=== PATIENT | female | born 1985 | race Caucasian/White ===

== ENCOUNTER 2016-07-04 02:38 | Inpatient (IN) | payer BC ==
[2016-07-04] VITALS (35 sets, daily range): BP systolic 100–137; BP diastolic 52–94; PULSE 58–102; TEMP 98–99
[~2016-07-04] VITALS: Ht 172.7 cm; Wt 86.4 kg
[~2016-07-04 02:38] MED LIST: PRENATAL1 TA7 PO
[2016-07-04 05:05] LABS: BASO % 0.4 % (0.0-2.0); EOS # 0.1 (0.0-0.7); EOS % 0.6 % (0-4.0); GRAN # 5.9 (1.4-6.5); HEMOGLOBIN 12.5 g/dl (12.5-16.0); LYMPH # 2.2 (1.2-3.4); LYMPH % 24.1 % (20.0-51.0); MEAN CELL VOLUME 86 fl (80.0-100.0); MEAN CORPUSCULAR HEMOGLOBIN 30 pg (27.0-31.0); MEAN CORPUSCULAR HGB CONC 36 g/dl (33.0-37.0); MEAN PLATELET VOLUME 12.8 fl (7.4-10.4); MONO # 0.8 (0.1-0.6); MONO % 8.6 % (1.7-9.3); PLATELET COUNT 184 K/mm3 (130-400); RED BLOOD COUNT 4.11 M/mm3 (4.10-5.30); REDCELL DISTRIBUTION WIDTH-CV 12.8 % (11.5-14.5)
[2016-07-04 05:09] LABS: HEMATOCRIT 35.2 % (37.0-47.0)
[2016-07-05 02:00] VITALS: BP 121/82; PULSE 89; TEMP 98
[2016-07-05 07:41] VITALS: BP 103/62; PULSE 67; TEMP 97.5
[2016-07-05] MEDS ORDERED: IBU800 M1 PO (14:42)
[2016-07-05 19:20] VITALS: BP 104/61; PULSE 68; TEMP 98.1
[2016-07-06 07:22] VITALS: BP 104/60; PULSE 82; TEMP 98.1
== END 2016-07-06 13:15 | disposition home or self-care (01) | DRG 775 ==
LOC: LDRO 02:38 → OB 03:44 → LDR 03:44 → OB 13:06
PROVIDERS: Obstetrics & Gynecology
PROC: 10D07Z6 Extraction of Products of Conception, Vacuum, Via Natural or Artificial Opening (ICD-10-PCS; principal; 2016-07-04)
PROC: 0KQM0ZZ Repair Perineum Muscle, Open Approach (ICD-10-PCS; 2016-07-04)
DX: O36.0130 Maternal care for anti-D [Rh] antibodies, third trimester, not applicable or unspecified (principal); O69.81X0 Labor and delivery complicated by cord around neck, without compression, not applicable or unspecified; O70.1 Second degree perineal laceration during delivery; O76 Abnormality in fetal heart rate and rhythm complicating labor and delivery; Z3A.38 38 weeks gestation of pregnancy; Z37.0 Single live birth
CPT/HCPCS: J2590; J7120

== ENCOUNTER 2018-07-11 22:43 | Outpatient (CLI) | payer BC ==
[~2018-07-11] VITALS: Ht 172.7 cm; Wt 87.3 kg
[~2018-07-11 22:43] MED LIST changes: +IBU800 M1 PO
[2018-07-11 23:00] VITALS: BP 127/81; PULSE 67; TEMP 97.8
--- NOTE | 2018-07-11 23:00 | NUR ---
2300 G3L1 39.1 WEEK GEST TO LR5 WITH C/O CONTRACTIONS AND LEFT SIDE PAIN. STATES HAS HAD A CHEST COLD AND BEEN COUGHING. ON 07/10/2018 SHE COUGHED HARD AND FELT A POP IN HER LEFT LOWER SIDE AND IT HAS BEEN HURTING CONSTANTLY SINCE WITH A NORMAL PAIN LEVEL OF 7 OUT OF 10. STATES AROUND 2200 TONIGHT SHE FELT LIKE SHE WAS STARTING TO HAVE CONTRACTIONS. EFM ON. CONTRACTION NOTED AND THEN ANOTHER NOT NOTED FOR ABOUT 20 MINUTES. SVE 2-3/75/-2. STATES TO PLAIN TYLENOL AROUND 2144 WITH NO PAIN RELIEF. ADM ASSESSMENT DONE.
[2018-07-11] MEDS ORDERED: SUDAFED30 MG PO (23:05)
[2018-07-11] MEDS ORDERED: TYLENOL 325MG325 MG (23:05)
[2018-07-11 23:06] VITALS: BP 127/81; PULSE 67; TEMP 97.8
--- NOTE | 2018-07-12 | NUR ---
0000 SVE WITH NO CHANGE. PAIN ON LEFT SIDE TOWARDS BACK BENEATH RIBS. 0010 DR MANRIQUEZ NOTFIED. ORDERS RECEIVED. 0020 LAB DRAWN AND UA OBTAINED. TYLENOL 1000 MG AND VISTARIL 50MG PO GIVEN.
--- NOTE | 2018-07-12 00:25 | NUR ---
0025 TYLENOL 1000 MG AND VISTARIL 50 MG PO GIVEN. SITTING UP IN BED WITH WARM BLANKET BEHIND LEFT SIDE FOR COMFORT. STILL RATES HER PAIN AT A 7 OUT OF 10.
[2018-07-12 00:54] LABS: COLLECTION METHOD CLEAN CATCH
[2018-07-12 00:58] LABS: BASO % 0.3 % (0.0-2.0); EOS # 0.1 (0.0-0.7); EOS % 0.5 % (0-4.0); GRAN # 6.1 (1.4-6.5); GRAN % 66.2 % (42.2-75.2); HEMOGLOBIN 12.4 g/dl (12.5-16.0); LYMPH # 2.3 (1.2-3.4); LYMPH % 25.1 % (20.0-51.0); MEAN CELL VOLUME 87 fl (80.0-100.0); MEAN CORPUSCULAR HEMOGLOBIN 29 pg (27.0-31.0); MEAN CORPUSCULAR HGB CONC 34 g/dl (33.0-37.0); MEAN PLATELET VOLUME 11.7 fl (7.4-10.4); MONO # 0.7 (0.1-0.6); MONO % 7.4 % (1.7-9.3); PLATELET COUNT 235 K/mm3 (130-400); RED BLOOD COUNT 4.25 M/mm3 (4.10-5.30); REDCELL DISTRIBUTION WIDTH-CV 13.6 % (11.5-14.5)
[2018-07-12 00:59] LABS: HEMATOCRIT 36.8 % (37.0-47.0)
[2018-07-12 00:59] LABS: MUCOUS Present /lpf; PH 5 (5-8); SQUAMOUS EPITHELIAL 0-2 /hpf; URINE APPEARANCE Clear; URINE BACTERIA None Seen /hpf; URINE BILIRUBIN Negative (NEGATIVE); URINE BLOOD Negative (NEGATIVE); URINE COLOR Yellow; URINE GLUCOSE Negative (NEGATIVE); URINE KETONE Negative (NEGATIVE); URINE LEUKOCYTE ESTERASE Negative (NEGATIVE); URINE NITRATE Negative (NEGATIVE); URINE PROTEIN(semi-quant) 1+ (NEGATIVE); URINE RBC 0-2 /hpf; URINE UROBILINOGEN Negative (NEGATIVE); URINE WBC 0-2 /hpf
[2018-07-12 01:08] LABS: ALBUMIN 3.7 gm/dL (3.5-5.0); BILIRUBIN,TOTAL 0.2 mg/dL (0.0-1.0); CALCIUM 9.5 mg/dL (8.4-10.2); CREATININE, serum 0.89 mg/dL (0.52-1.25); POTASSIUM 4.1 mmol/L (3.4-5.0); TOTAL PROTEIN 7.2 gm/dL (6.4-8.2)
[2018-07-12 01:10] VITALS: BP 117/77; PULSE 74
--- NOTE | 2018-07-12 01:30 | NUR ---
0130 DR MANRIQUEZ NOTIFIED OF NO RELIEF FROM TYLENOL AND VISTARIL. NEW ORDERS RECEIVED. 0140 IV LR STARTED IN LEFT HAND.
[2018-07-12 02:00] VITALS: BP 122/81; PULSE 75
--- NOTE | 2018-07-12 02:00 | NUR ---
0200 MORPHINE 2 MG IV GIVEN. STATES IF LAYS STILL PAIN IN LEFT BACK NEAR BRA LINE IS NOT TOO BAD BUT IF SHE MOVES OR BREATHS DEEP CAUSES SHOOTING PAINS.
--- NOTE | 2018-07-12 03:00 | NUR ---
0300 STATES MORPHINE HELPED SOME. RATES PAIN [address] MANRIQUEZ UPDATED AND ORDER RECEIVED TO DISMISS TO HOME AFTER IV FLUIDS INFUSED.
--- NOTE | 2018-07-12 03:15 | NUR ---
0315 IV DCD. DISMISSAL INSTRUCTIONS GIVEN. 0325 HOME PER AMB WITH
[2018-07-13] MEDS ORDERED: IBU800 M1 PO (10:27)
== END 2018-07-12 03:25 | disposition home or self-care (01) ==
LOC: LDRO 22:43 → LDR 22:52 → LDRO 07-12 03:25
PROVIDERS: Obstetrics & Gynecology
DX: O62.9 Abnormality of forces of labor, unspecified (principal); O26.893 Other specified pregnancy related conditions, third trimester; R10.9 Unspecified abdominal pain; Z3A.39 39 weeks gestation of pregnancy
CPT/HCPCS: OP; J2270; J7120

== ENCOUNTER 2018-07-12 09:13 | Inpatient (IN) | payer BC ==
[2018-07-12] VITALS (43 sets, daily range): BP systolic 86–134; BP diastolic 48–83; PULSE 54–96; TEMP 98.3–98.5
[~2018-07-12] VITALS: Ht 172.7 cm; Wt 87.3 kg
[~2018-07-12 09:13] MED LIST changes: +SUDAFED30 MG PO; +TYLENOL 325MG325 MG
--- NOTE | 2018-07-12 09:30 | NUR ---
Patient ambulatory onto unit for induction of labor after talking to regarding pain. at side. Oriented to room, plan of care discussed. Patient reports irregular contractions and good movement, denies vaginal bleeding or leaking of fluid. States pain has continued after evaluation last night. Denies need for Morphine at this time, aware of order from . EFMs on, VS taken. Assessment completed. Consents signed. IV started by Ángel RN, LR infusing per orders. Call light within reach.
--- NOTE | 2018-07-12 10:30 | NUR ---
Dr. Santiago on unit, reviews FHR strip. Orders to start Pitocin induction at this time. RN at bedside, reviews Pitocin administration. Patient denies questions. Pitocin started at 2 mU per protocol and order. Will monitor per protocol.
--- NOTE | 2018-07-12 11:25 | NUR ---
Patient requesting epidural. Dr. Santiago on unit, notified. Orders for epidural recieved. 1135- Gregory Castillo CRNA at bedside. Patient assisted to sit on edge of bed. 1145- Epidural test dose by Gregory Castillo CRNA. Patient tolerates well, no adverse reactions noted. See anesthesia record. 1150- Patient repositioned LL following epidural. Updated on plan of care and safety.
--- NOTE | 2018-07-12 12:00 | NUR ---
1155- Dr. Santiago at bedside. Discussing AROM with patient. Patient agrees and denies questions. 1200- SVE per provider -/-2. AROM by Dr. Santiago for moderate amount of clear fluid. Pericare given and patient updated on plan of care. Beginning to get comfortable with epidural. 1220- Report to Miguel Metz RN.
--- NOTE | 2018-07-12 12:30 | NUR ---
1217- Late deceleration noted post contraction. heart rate down to 100bpm with moderate variability and spontaneous return to baseline over 80 seconds. will continue to monitor
--- NOTE | 2018-07-12 13:30 | NUR ---
1318- heart rate down to 105bpm over 60 seconds wit moderate variability and spontaneous return to baseline. 1324- FHR down to 95 bpm over 150 seconds with spontaenous return to baseline and moderate variability. Nurse into room for monitoring of patient. Will continue to monitor paitent
--- NOTE | 2018-07-12 13:45 | NUR ---
1339- Fhr down to 100 bpm over 90 second with spontaneous return to baseline and moderate varibility, fluid bolus initiated. 1341- FHR down to 90 bpm over 90 seconds with spontaneous return to baseline. Nurse at patient bedside, patient adjusted postion, change from wedge righ to wedge left, then back to wedge right. Nurse remains bedside for monitor of FHR. Will continue to moniotr.
--- NOTE | 2018-07-12 14:00 | NUR ---
1339- FHR down to 90 bpm over 70 seconds with spontaneous return to baseline with moderate variability. SVE completed and noted 5/80/0, peanut ball in place and patient readjusted. nurse remains at bedside for monitoring of patient.
--- NOTE | 2018-07-12 14:15 | NUR ---
1400- FHR down to 90 bpm over 80 seconds with spontanoues return to baseline with moderate varibility. 1411- FHR down to 85 bpm over 80 seconds with moderate variability and spontaneous return to baseline, at patient bedside reviewing FHR strip and helping to adjust patient. Pitocin stopped at this time. SVE completed by , noted , patient tolerated well. 1414- FHR down to 90 bpm with spontaneous return to baseline and moderate varibiality . At this time patient set up into sitting positioin. Will continue to monitor.
--- NOTE | 2018-07-12 15:00 | NUR ---
Pitocin restarted per instruction of , Pit started at 6 miliunits
--- NOTE | 2018-07-12 16:30 | NUR ---
1620- FHR down to 90 bpm with moderate variability and spontaneous return to baseline over 40 seconds.
--- NOTE | 2018-07-12 16:45 | NUR ---
1633- FHR DOWN TO 85 BPM WITH MODERATE VARIBAILITY AND SPONTANEOUS RETURN TO BASELINE OVER 60 SECONDS. 1635- FHR DOWN TO 75 BPM WITH MODERATE VARIABILITY AND SPONTANEOUS RETURN TO BASELINE OVER 80 SECONDS, PATIENT REPOSTIOINED, FLUID BOLUS INITIATED, OXYGEN BY MASK APPLIED AT 10 LITERS. PITOCIN STOPPED. NOTIFIED AND REVIEWS FHR STRIP FROM HOME. NURSES REMAINS AT PATIENTS BEDSIDE PATIENT REMIANS IN HIGH RIGHT LATERAL POSITION 1645- FHR DOWN TO 90 BPM OVER 50 SECONDS WITH SPONTANEOUS RETURN TO BASELINE. RETURNS CALL TO NURSE POST REVIEW. INSTRUCTS PIT TO REMAIN OFF FOR 20 MINUTES TO ALLOW BABY TO RECOVER, THEN MOVE PAITIENT INTO HIGH SEMI FOLOWERS POSITION AND CONTINUE TO MONITOR WITH PITOCIN OFF AT THAT TIME. MAY RESTART PITOCIN IF NEEDED AT 6MILIUNITS. CONITNUE TO MONITOR.
--- NOTE | 2018-07-12 18:15 | NUR ---
Report given to oncoming hourly shift manager nurser Urmila, Patient resting comfortably in bed, denies needs or questions at this time. SVE completed at 1800, noted . update on patient status, who reviews FHR strip from home. Pitocin started at 1815 per orders of at 4 miliunits and to slowly increase.
--- NOTE | 2018-07-12 18:40 | NUR ---
184- Pt repositioned due to comfort to right lateral. 184- FHR down to 70's-90's for 8 minutes. Frequent position changes between right lateral, left lateral and high fowlers. Pitocin turned off. O2 at 10L via face mask started. SVE by this RN /+2. Dr. Santiago notified and on her way in. 1849- FHR with slow return to baseline with pt in hands and knees position. 1853- Dr. Santiago at the bedside. FHR tracing reviewed. 1857- Assisted pt back to supine with left wedge position. remains at the bedside. FHR tracing reviewed. 1899- Pt set up for delivery. Yun removed. 1903- O2 off. 1904- Pushing started. 1911- of viable female . Cords clamped and cut. Care of the given over to nursery RN at the bedside. 1915- REGIONAL SALES COORDINATOR call for assistance. of placenta. Fundus firm with moderate lochia per Dr. Santiago. Pitocin started 333ml/hr per order.
[2018-07-12 19:50] LABS: COLLECTION METHOD CATHETER
[2018-07-12 19:59] LABS: MUCOUS Present /lpf; PH 5 (5-8); URINE APPEARANCE Clear; URINE BACTERIA None Seen /hpf; URINE BILIRUBIN Negative (NEGATIVE); URINE BLOOD 3+ (NEGATIVE); URINE COLOR Yellow; URINE GLUCOSE Negative (NEGATIVE); URINE KETONE Negative (NEGATIVE); URINE LEUKOCYTE ESTERASE Negative (NEGATIVE); URINE NITRATE Negative (NEGATIVE); URINE PROTEIN(semi-quant) 1+ (NEGATIVE); URINE RBC >50 /hpf; URINE UROBILINOGEN Negative (NEGATIVE)
--- NOTE | 2018-07-12 21:45 | NUR ---
Pt up to the bathroom with standby assist and without complications. Pt unable to void at this time. Maryan-care done. Pt ambulated to room 207. Pt oriented to room, bed and call light within reach. Plan of care reviewed.
[2018-07-13 03:10] VITALS: BP 88/56; PULSE 61; TEMP 97.7
[2018-07-13 07:45] VITALS: BP 121/70; PULSE 56; TEMP 97.4
--- NOTE | 2018-07-13 10:16 | NUR ---
Initial visit; Mom thanked Tree Inspector for offering congratulations and God's blessings for the of her daughter. Tree Inspector thanked family for choosing [facility].
[2018-07-13] MEDS ORDERED: IBU800 M1 PO (10:27)
[2018-07-13 11:30] VITALS: BP 112/64; PULSE 81; TEMP 98.1
[2018-07-13 15:30] VITALS: BP 133/69; PULSE 83; TEMP 98.2
--- NOTE | 2018-07-13 20:00 | NUR ---
PT PREPARES TO BE DISCHARGED- DISCHARGE TEACHING IS REVIEWED QUESTIONS ENCOURGED AND ANSWERED. MOM IS EXPREIENCED.
== END 2018-07-13 20:40 | disposition home or self-care (01) | DRG 807 ==
LOC: LDR 09:13 → OB 22:48
PROVIDERS: ADMIT Student in an Organized Health Care Education/Training Program
PROC: 10E0XZZ Delivery of Products of Conception, External Approach (ICD-10-PCS; principal; 2018-07-12)
PROC: 3E033VJ Introduction of Other Hormone into Peripheral Vein, Percutaneous Approach (ICD-10-PCS; 2018-07-12)
PROC: 10907ZC Drainage of Amniotic Fluid, Therapeutic from Products of Conception, Via Natural or Artificial Opening (ICD-10-PCS; 2018-07-12)
DX: O76 Abnormality in fetal heart rate and rhythm complicating labor and delivery (principal); Z37.0 Single live birth; Z3A.39 39 weeks gestation of pregnancy; O69.81X0 Labor and delivery complicated by cord around neck, without compression, not applicable or unspecified; O26.893 Other specified pregnancy related conditions, third trimester; Z67.31 Type AB blood, Rh negative; M54.5 Low back pain; R10.32 Left lower quadrant pain
CPT/HCPCS: J2590; J7120